=== PATIENT | male | born 1965 | race African-American/Black ===

== ENCOUNTER 2017-08-11 18:02 | Emergency (ER) | payer MEDICAID ==
[~2017-08-11] VITALS: Ht 170.2 cm; Wt 113.0 kg
[2017-08-11] MEDS ORDERED: BENA20TA3 PO (18:11)
[2017-08-11 20:02] LABS: CHLORIDE 108 mEq/L (98-107)
[2017-08-11 20:09] LABS: BASOPHILS % 0.5 % (0.0-2.0); EOSINOPHILS % 1.9 % (0.0-5.0); HEMATOCRIT. 41.7 % (42.0-52.0); HEMOGLOBIN. 13.9 g/dL (14.0-18.0); LYMPHOCYTES % 22.3 % (20.0-50.0); MEAN CORPUSCULAR VOLUME 92.6 fL (80.0-94.0); MONOCYTES % 9.8 % (2.0-8.0); NEUTROPHILS % 65.5 % (40.0-76.0); PLATELET 274 x1000/uL (130-400); RED CELL DISTRIBUTION WIDTH 13.4 % (11.6-14.6)
[2017-08-11 20:10] LABS: CARBON DIOXIDE 29 mEq/L (21-32)
[2017-08-11] MEDS ORDERED: ONDANSETRON HCL 4MG/2ML VIAL IV STA (21:17)
[2017-08-11] MEDS ORDERED: MORPHINE SULFATE 4 MG/ML CPJ (NOT FOR IM USE) IV STA (21:17)
[2017-08-11] MEDS ORDERED: MORPHINE SULFATE 2 MG/ML CPJ (NOT FOR IM USE) IV NR (21:45)
[2017-08-11] MEDS ORDERED: CLONIDINE 0.1MG TABLET PO ONE (22:00)
[2017-08-11 22:23] VITALS: BP 173/109
== END 2017-08-11 22:50 | disposition home or self-care (01) ==
LOC: ER 19:47
DX: J02.9 Acute pharyngitis, unspecified (principal); I10 Essential (primary) hypertension
CPT/HCPCS: 36415; 70490; 80053; 85025; 96374; 96375; 99285; J2270; J2405; Z7610

== ENCOUNTER 2018-09-13 00:27 | Emergency (ER) | payer MEDICAID ==
[~2018-09-13] VITALS: Ht 170.2 cm; Wt 102.0 kg
[~2018-09-13 00:27] MED LIST: BENA20TA10 PO
[2018-09-13] MEDS ORDERED: LIDOCAINE 1%/EPI 1:100,000 10 ML VIAL IJ ONE (02:15)
[2018-09-13] MEDS ORDERED: IBUPROFEN 600MG TABLET PO ONE (02:15)
[2018-09-13] MEDS ORDERED: BACITRACIN ZINC OINT UDPKT TOP ONE (02:15)
[2018-09-13] MEDS ORDERED: TETANUS, DIPHTHERIA, PERTUSSIS VAC/PF 0.5ML (>7YR OLD) IM ONE (02:15)
[2018-09-13] MEDS ORDERED: CLONIDINE 0.2MG TABLET PO ONE (03:30)
[2018-09-13 04:18] VITALS: BP 168/118
== END 2018-09-13 04:25 | disposition home or self-care (01) ==
LOC: ER 00:27
DX: S51.812A Laceration without foreign body of left forearm, initial encounter (principal); I10 Essential (primary) hypertension; W22.8XXA Striking against or struck by other objects, initial encounter; Y93.89 Activity, other specified; Y92.89 Other specified places as the place of occurrence of the external cause; Y99.8 Other external cause status
CPT/HCPCS: 12002; 90471; 90715; 99284; J3490

== ENCOUNTER 2018-09-15 10:33 | Emergency (ER) | payer MEDICAID ==
[~2018-09-15] VITALS: Ht 167.6 cm; Wt 112.6 kg
[2018-09-15 10:42] VITALS: BP 179/105
== END 2018-09-15 14:05 | disposition left against medical advice (07) ==
LOC: ER 10:33
DX: S51.812D Laceration without foreign body of left forearm, subsequent encounter (principal); X58.XXXD Exposure to other specified factors, subsequent encounter; Z53.21 Procedure and treatment not carried out due to patient leaving prior to being seen by health care provider

== ENCOUNTER 2018-09-24 09:01 | Emergency (ER) | payer MEDICAID ==
[~2018-09-24] VITALS: Ht 170.2 cm; Wt 116.0 kg
[2018-09-24 09:17] VITALS: BP 197/118
== END 2018-09-24 10:39 | disposition home or self-care (01) ==
LOC: ER 10:03
DX: Z48.00 Encounter for change or removal of nonsurgical wound dressing (principal); I10 Essential (primary) hypertension; F17.200 Nicotine dependence, unspecified, uncomplicated; Z71.6 Tobacco abuse counseling
CPT/HCPCS: 99281; 99406